=== PATIENT | female | born 1955 | race Caucasian/White ===

== ENCOUNTER → 2017-03-02 | Outpatient (CLI) | payer OTHER ==
[~2017-03-02] VITALS: Ht 121.9 cm; Wt 62.6 kg
[~2017-03-02] MED LIST: ADULT LOW DOSE81 MG PO; APAP500 PO; BIOTIN1 MG PO; HAIR, SKIN & N1 EAC2 PO; LIPITOR 10 MG10 M1 PO; PHENTERMINE H37.5 MG PO
--- NOTE | ~2017-03-02 | P ---
[facility] [place] [address] PROCEDURE REPORT Name: ALBINA RODRIGUEZ Room #: REG [facility]#: [id number] Admission: 03/02/17 Attend Phys: Wei Martinez Discharge: Date of : 55 Report #: [id number] THIS REPORT FOR: //name// CC: Wei Gil MD DATE OF SERVICE: 03/02/2017 PROCEDURE PERFORMED: Colonoscopy with biopsies. HISTORY OF PRESENT ILLNESS: The patient is a 61-year-old female with a history of colon polyps, last colonoscopy was 5 years ago. She denies any symptoms. No family history of colon cancer. DESCRIPTION OF PROCEDURE: The risks and benefits of the procedure were explained to the patient, those risks including but not limited to bleeding, perforation, the risk of sedation. She understood these risks and gave informed consent. Sedation was given using propofol per anesthesia. Next, a digital rectal exam was initially performed, which was normal. Next, using a standard Fujinon colonoscope, the scope was placed in the patient's anus and advanced under direct vision to the cecum. The overall prep was excellent. In the cecum, there was a 4 mm sessile polyp. This was removed with cold forceps, otherwise normal. The ileocecal valve was normal. Scattered diverticulosis was noted throughout the ascending colon, no evidence of inflammation. The transverse and descending colon were normal. Multiple diverticula were noted in the sigmoid colon. One area in the diverticulum showed some erythema and possible inflammatory polyp type tissue. Several biopsies were obtained. The rectal mucosa was normal. On retroflexion, no abnormalities were noted. The scope was then withdrawn and the procedure terminated. The patient tolerated the procedure well. IMPRESSION: 1. Small colonic polyp. 2. Diverticulosis involving the ascending and sigmoid colon, 1 area with mild inflammation, possible inflammatory polyp. Biopsies obtained. 3. Otherwise, normal colonoscopy. RECOMMENDATIONS: 1. Await biopsy results. 2. If polyps are hyperplastic, repeat in 10 years; if adenomatous polyp, repeat in 5 years. If the patient has abdominal pain in the near future, could consider antibiotics for possible diverticulitis. [address] [address] PROCEDURE REPORT Name: ALBINA RODRIGUEZ ANGELA Room #: REG [facility]#: [id number] Admission: 03/02/17 Attend Phys: Wei Martinez Discharge: Date of : 55 Report #: [id number] Thank you for allowing me to participate in her care. By: [id number] Wei Orourke MD /nt
--- NOTE | ~2017-03-02 | S ---
[facility] [address] [place] [address] SURGICAL PATH RPT PROCEDURE Name: ALBINA RODRIGUEZ Room #: REG RICA Matos.#: [id number] Admission: 03/02/17 Date of : 55 Discharge: Report #: [id number] Path Case #: [id number] PATHOLOGY REPORT DRAFT COLLECTION DATE: 03/02/2017 RECEIVED DATE: 03/02/2017 SPECIMEN(S) RECEIVED: A.Cecum polyp B.Sigmoid
== END | disposition home or self-care (01) ==
LOC: GI 07:52
DX: D12.0 Benign neoplasm of cecum (principal); D12.5 Benign neoplasm of sigmoid colon; I10 Essential (primary) hypertension; K57.30 Diverticulosis of large intestine without perforation or abscess without bleeding; Z90.710 Acquired absence of both cervix and uterus; Z98.890 Other specified postprocedural states

== ENCOUNTER → 2017-08-31 | Outpatient (CLI) | payer OTHER | LOC: RAD 09:57 | DX: Z12.31 Encounter for screening mammogram for malignant neoplasm of breast (principal) ==

== ENCOUNTER → 2018-09-02 | Outpatient (CLI) | payer OTHER | LOC: RAD 12:40 | DX: Z12.31 Encounter for screening mammogram for malignant neoplasm of breast (principal) ==

== ENCOUNTER → 2019-09-12 | Outpatient (CLI) | payer OTHER | LOC: RAD 10:33 | DX: Z12.31 Encounter for screening mammogram for malignant neoplasm of breast (principal) ==

== ENCOUNTER → 2020-10-27 | Outpatient (CLI) | payer OTHER | LOC: BC 10:45 | PROVIDERS: ATTEND Family Medicine | DX: Z12.31 Encounter for screening mammogram for malignant neoplasm of breast (principal) ==

== ENCOUNTER → 2021-10-21 | Outpatient (CLI) | payer OTHER | LOC: BC 09:14 | PROVIDERS: ATTEND Family Medicine | DX: Z12.31 Encounter for screening mammogram for malignant neoplasm of breast (principal) ==